=== PATIENT | female | born 1960 | race Caucasian/White ===

== ENCOUNTER → 2016-05-07 16:01 | Outpatient (CLI) | payer OTHER | END | disposition home or self-care (01) | LOC: D.MAMMO 15:15 | DX: Z12.31 Encounter for screening mammogram for malignant neoplasm of breast (principal) ==

== ENCOUNTER → 2016-08-20 07:57 | Outpatient (CLI) | payer MEDICAID | END | disposition home or self-care (01) | LOC: D.CN 05-29 08:00 | DX: M79.602 Pain in left arm (principal) ==

== ENCOUNTER 2016-09-18 22:58 | Observation (INO) | payer MEDICAID ==
[~2016-09-18] VITALS: Ht 154.9 cm; Wt 78.2 kg
--- NOTE | ~2016-09-18 | OP ---
PATIENT NAME: KATERIN BAKER MEDICAL RECORD: [id number] :56 LOCATION:D.M2 D.2137 ADMISSION DATE:09/19/16 SURGEON: CALLIE GOMEZ MD DATE OF OPERATION: 09/20/2016 PROCEDURES: 1. PTCA stent LAD. 2. Left heart catheterization. 3. Selective coronary angiography. 4. Left ventriculogram. INDICATION: Angina and coronary artery disease. PROCEDURE IN DETAIL: After informed consent was obtained and after detailed explanation of risks, benefits as well as alternative therapies, the patient elected to proceed with angiogram and angioplasty. The right radial area was prepped and draped in normal sterile fashion. The right radial artery was cannulated via modified Seldinger technique with placement of 6-Kinyarwanda sheath. All catheters exchanged through this sheath. FINDINGS: Left ventriculogram was performed in standard 30-degree FLOWERS view, reveals good cardiac wall motion throughout all segments. Overall ejection fraction 65%. SELECTIVE CORONARY ANGIOGRAPHY: 1. Left main showed no significant angiographic disease. 2. Left anterior descending has a 70%-80% stenosis proximally, otherwise only mild irregularities. 3. Left circumflex has moderate irregularities, but no flow-limiting stenosis. 4. Right coronary has moderate irregularities, but no flow-limiting stenosis. PTCA STENT OF THE LAD: The stent used is a 2.5 x 18 mm Integrity. Result was 0% residual stenosis. OVERALL IMPRESSION: Successful percutaneous transluminal coronary angioplasty stent of the left anterior descending going from 80% initial stenosis to 0% residual. TRANSINT:[id number] Voice Confirmation ID: [id number] DOCUMENT ID: [id number] CALLIE GOMEZ MD CC: [id number] DICTATION DATE: 09/20/16931 CEMENT CONTRACTOR: 09/20/16 1337 ADM IN [facility] [address] [place] [address]
--- NOTE | ~2016-09-18 | HEMODYNAMI ---
PATIENT:KATERIN BAKER MEDICAL RECORD: [id number] : 56 [facility] ADMISSION DATE: 09/19/16 Generatedon:09/20/20169:34 Patient name: KATERIN BAKER Patient #: [id number] SSN: D OB: 1960 Date of study: 09/20/2016 Page: Of Hemodynamic Procedure Report Patient Data Patient Demographics Procedure consent was obtained First Name: KATERIN Gender: Female Last Name: SAMUEL : 1960 [facility] Initial: J Age: 55 year(s) Patient #: [id number] Race: Additional ID: [id number] Contact details [address]: [address] [place] [address] [address]IVE State: [place] City: [place] Zip code: [address] Past Medical History Allergies Allergen Reaction Date Comments Reported Other allergy 09/20/2016 codeine, Pentazocine (talwin) Admission Admission Data Admission Date: 09/19/2016 Admission Time: 2:58 Room #: D.2137 Lab Results Lab Result Date: 09/20/2016 Lab Result Time: 0:00 Biochemistry Name Units Result Min Max BUN mg/dl 16 --(---*)-- 7 18 Creatinine mg/dl 1.1 --(--*-)-- 0.6 1.3 CBC Name Units Result Min Max Hemoglobin g/dl 12.1 *-(----)-- 13.5 17.5 Procedure Procedure Types Cath Procedure Diagnostic Procedure LHC LH w/Coronaries PCI Procedure Coronary Stent Initial Procedure Description Procedure Date Procedure Date: 09/20/2016 Procedure Start Time: 9:18 Procedure End Time: 9:33 Procedure Staff Name Function Damian Lorenzo MD Performing Physician Johana Gomez RT Scrub John Paul Verduzco RN Nurse Nasir Yanez RT Monitor Procedure Data Cath Procedure Fluoroscopy Diagnostic fluoroscopy Total fluoroscopy Time: 3.1 time: 3.1 min min Diagnostic fluoroscopy Total fluoroscopy dose: 429 dose: 429 mGy mGy Contrast Material Contrast Material Type Amount (ml) Isovue 300 66 Entry Location Entry Primary Successful Side Size Upsize Upsize Entry Closure Ramon ccessful Closure Location (Fr) 1 (Fr) 2 (Fr) Remarks Device Remarks Radial Right 6 Fr Mechanical artery Short Compression Estimated blood loss: 10 ml Diagnostic catheters Device Type Used For End Catheter Placement Diagnostic Terumo 5Fr Procedure [place] 110cm catheter Procedure Medications Medication Administration Route Dosage Oxygen NC 2 l/min Heparin Flush Bag added to field 2 bags (1000units/500ml NS) 0.9% NaCl I.V. 100 ml/hr Radial Cocktail added to field 1 syringe (Verapomil 2mg/Nitro 400mcg/Heparin 1500units) Plavix P.O. 75 mg Fentanyl I.V. 50 mcg Versed I.V. 1 mg Radial Cocktail I.A. 1 syringe (Verapomil 2mg/Nitro 400mcg/Heparin 1500units) Fentanyl I.V. 50 mcg Versed I.V. 1 mg Heparin Bolus I.V. 4000 units Hemodynamics Rest HGB: 12.1 (g/dl) Heart Rate: 64 (bpm) Pressure Samples Time Site Value (mmHg) Purpose Heart Use Rate(bpm) 9:21 LV 100/12,13 Snapshot 81 Snapshots Pre Cath Intra NCS Post Cath Vital Signs Time Heart Resp SPO2 NIBP (mmHg) Rhythm Pain Sedation Rate (ipm) (%) Status Level (bpm) 8:40:10 62 20 100 141/75(102) NSR 0 (11) 10(A) , No pain 8:45:09 67 20 100 149/66(101) NSR 0 (11) 10(A) , No pain 8:49:29 79 20 99 143/76(99) NSR 0 (11) 10(A) , No pain 8:53:45 74 23 95 137/75(100) NSR 0 (11) 10(A) , No pain 8:58:01 66 18 95 111/69(79) NSR 0 (11) 10(A) , No pain 9:02:11 67 20 94 120/64(78) NSR 0 (11) 10(A) , No pain 9:06:23 66 20 94 111/65(84) NSR 0 (11) 10(A) , No pain 9:10:31 70 17 93 110/66(83) NSR 0 (11) 10(A) , No pain 9:14:39 70 19 94 109/67(83) NSR 0 (11) 10(A) , No pain 9:18:47 73 20 94 114/66(86) NSR 0 (11) 9(A) , No pain 9:22:56 76 19 95 112/61(72) NSR 0 (11) 9(A) , No pain 9:27:08 74 20 92 103/58(71) NSR 0 (11) 9(A) , No pain 9:31:16 71 20 93 104/58(89) NSR 0 (11) 9(A) , No pain Medications Time Medication Route Dose Verified Delivered Reason Notes Effectiveness by by 8:48:02 Oxygen NC 2 l/min John Paul Coker Per physician Dax Verduzco RN RN 8:48:10 Heparin Flush added 2 bags John Paul Coker used for Bag to Dax Verduzco RN procedure (1000units/500ml field SAN NS) 8:48:19 0.9% NaCl I.V. 100 John Paul Malhotray Per physician ml/hr Dax Verduzco RN RN 8:48:28 Radial Cocktail added 1 John Paul Coker used for (Verapomil to syringe Dax Verduzco RN procedure 2mg/Nitro RN 400mcg/Heparin 1500units) 8:52:03 Plavix P.O. 75 mg John Paul John Paul for Dax Verduzco RN antiplatelet RN therapy 9:14:08 Fentanyl I.V. 50 mcg John Paul John Paul for sedation Dax Verduzco RN RN 9:14:14 Versed I.V. 1 mg John Paul John Paul for sedation Dax Verduzco RN RN 9:20:15 Radial Cocktail I.A. 1 John Paul Garciarey for (Verapomil syringe Dax Lorenzo MD vasodilation 2mg/Nitro RN 400mcg/Heparin 1500units) 9:20:22 Fentanyl I.V. 50 mcg John Paul John Paul for sedation Dax Verduzco RN RN 9:20:28 Versed I.V. 1 mg John Paul John Paul for sedation Dax Verduzco RN RN 9:26:08 Heparin Bolus I.V. 4000 John Paul Coker for units Dax Verduzco RN anticoagulation automotive engineer Log Time Note 8:07:23 Informed consent obtained and on chart 8:07:27 Diagnostic Cath Status : Elective 8:08:16 Damian Lorenzo MD sent for patient. Start room use. 8:08:33 Time tracking: Regular hours 8:08:39 Plan of Care:Hemodynamics will remain stable., Cardiac rhythm will remain stable., Comfort level will be maintained., Respiratory function will remain adequate., Patient/ family verbilizes understanding of procedure., Procedure tolerated without complication., Recovers from procedure without complications.. 8:15:38 Lab Result : BUN 16 mg/dl 8:15:38 Lab Result : Creatinine 1.1 mg/dl 8:15:38 Lab Result : Hemoglobin 12.1 g/dl 8:38:55 Patient received from Med II to CCL 2 Alert and oriented. Tansferred to table in Supine position. 8:38:57 Warm blankets applied, and cong hugger turned on for patient comfort. 8:38:58 Correct patient and procedure confirmed by team. 8:39:00 ECG and BP/O2 sat monitors applied to patient. 8:39:03 Vital chart was started 8:39:07 Baseline sample Acquired. 8:39:18 Rhythm: sinus rhythm 8:39:19 Full Disclosure recording started 8:40:17 H&P Date Dictated: 09/19/2016 Within 30 days and on chart., H&P Addendum completed by physician on day of procedure. (MUST COMPLETE FOR ALL OUTPATIENTS). 8:40:26 Pre-procedure instructions explained to patient. 8:40:36 Family in waiting room. 8:40:38 Patient NPO since Midnight. 8:41:19 Patient allergic to Other allergycodeine, Pentazocine (talwin) 8:41:22 Is the patient allergic to Iodine/contrast media? No. 8:41:41 Is patient on blood thinner?Yes 8:41:45 ACC The patient was administered the following blood thiners within the last 24 hours: ACCPlavix 8:42:01 Patient diabetic? No. 8:42:07 Snore? Yes 8:42:09 Sleep apnea? No 8:42:17 Dentures? Yes tight 8:42:33 IV patent on arrival in left forearm with 0.9% NaCl at KVO. 8:42:41 Lab results completed and on chart. 8:42:46 Right Radial & Right Groin area was prepped with chlora-prep and draped in sterile fashion 8:42:51 Alarms reviewed by R. N. 8:42:52 Sharps counted by scrub and verified by R.N. 8:42:53 Physician paged 8:48:02 Oxygen 2 l/min NC was administered by John Paul Verduzco RN; Per physician; 8:48:10 Heparin Flush Bag (1000units/500ml NS) 2 bags added to field was administered by John Paul Verduzco RN; used for procedure; 8:48:19 0.9% NaCl 100 ml/hr I.V. was administered by John Paul Verduzco RN; Per physician; 8:48:28 Radial Cocktail (Verapomil 2mg/Nitro 400mcg/Heparin 1500units) 1 syringe added to field was administered by John Paul Verduzco RN; used for procedure; 8:51:07 Baseline sample Acquired. 8:51:39 Use device set Radial Dx 8:51:40 Acist Syringe opened to sterile field. 8:51:41 Medline Cath Pack opened to sterile field. 8:51:41 Bag Decanter opened to sterile field. 8:51:42 Terumo 6Fr Slender Glidesheath opened to sterile field. 8:51:42 St Kareem 260cm J .035 wire opened to sterile field. 8:51:43 Acist Hand Control opened to sterile field. 8:51:44 Acist Manifold opened to sterile field. 8:51:44 Tegaderm 4 x 4 opened to sterile field. 8:51:45 MBrace Wrist Support opened to sterile field. 8:52:03 Plavix 75 mg P.O. was administered by John Paul Verduzco RN; for antiplatelet therapy; 9:02:22 Zero performed for pressure channel P1 9:05:21 DR. LORENZO IN ROOM 1 9:09:27 PATIENTS ID BAND AND ALLERGY BAND REMOVED FROM RIGHT WRIST AND TAPED TO CHART 9:09:54 PATIENT HAD FOUR RINGS REMOVED FROM RIGHT HAND AND TAPED TO CHART 9:13:42 Physician arrived 9:13:42 --------ALL STOP TIME OUT------ 9:13:43 Final Timeout: patient, procedure, and site verified with staff and physician. All members of the team are in agreement. 9:13:45 Right Radial & Right Groin site verified by team. 9:13:48 Physical assessment completed. ASA score P 2 - A patient with mild systemic disease as per Damian Lorenzo MD. 9:13:52 Sedation plan: IV Moderate Sedation Versed, Fentanyl 9:14:08 Fentanyl 50 mcg I.V. was administered by John Paul Verduzco RN; for sedation; 9:14:14 Versed 1 mg I.V. was administered by John Paul Verduzco RN; for sedation; 9:18:32 Procedure started. 9:18:37 Local anesthetic to right radial artery with Lidocaine 2% by Damian Lorenzo MD.INITIAL ACCESS ONLY 9:19:56 A 6 Fr Short sheath was inserted into the Right Radial artery 9:20:15 Radial Cocktail (Verapomil 2mg/Nitro 400mcg/Heparin 1500units) 1 syringe I.A. was administered by Damian Lorenzo MD; for vasodilation; 9:20:16 A Diagnostic Sittercityo 5Fr [place] 110cm catheter was advanced over the wire and used for Procedure. 9:20:22 Fentanyl 50 mcg I.V. was administered by John Paul Verduzco RN; for sedation; 9:20:28 Versed 1 mg I.V. was administered by John Paul Verduzco RN; for sedation; 9:21:18 LV hemodynamics recorded. 9:21:20 LV gram done using FLOWERS 9:21:26 EF : 60 % 9:22:17 RCA angiography performed. 9:22:32 Catheter removed. unable to cannulate vessel. 9:22:53 Cordis 6FR XBLAD 3.5 guide catheter opened to sterile field. 9:23:05 6 Fr XB LAD 3.5 guide catheter was inserted over the wire 9:23:53 LCA angiography performed. 9:24:32 Proceeding to intervention. 9:24:39 PCI Cath status Elective 9:24:46 Procedure type changed to Cath procedure, Diagnostic procedure, LHC, LHC w/Coronaries, PCI procedure, Coronary Stent Initial 9:25:12 Merit BasixCompak Inflation Kit opened to sterile field. 9:26:08 Heparin Bolus 4000 units I.V. was administered by John Paul Verduzco RN; for anticoagulation; 9:27:12 [place] [employer] PT Graphix J 300cm 0.014 guide wire opened to sterile field. 9:27:27 PT GRAPHIX wire advanced. 9::56 Inflation Number: 1 A Medtronic Integrity 2.5 X 18 stent was prepped and advanced across the Prox LAD. The stent was deployed at 15 JOSE J for 0:10 (min:sec). 9::33 Stent catheter was removed intact over wire. 9::34 Wire removed. 9:28:35 Guide catheter removed. 9:28:44 Terumo TR Band Standard opened to sterile field. 9:29:10 Sheath removed intact; hemostasis achieved with Mechanical Compression to the Right Radial artery. 9:29:14 Procedure ended.(Physican Out) 9::27 Fluoroscopy time 03.10 minutes. 9::33 Fluoroscopy dose: 429 mGy 9::33 Flurop Dose total: 429 9::47 Contrast amount:Isovue 300 66ml. 9:29:48 Sharps counted by scrub and verified by R.N. 9:32:22 TR band inflated with 10cc of air. 9:32:24 Insertion/operative site no bleeding no hematoma. 9:32:30 Post right radial artery:stable 9:32:37 Post-procedure physical assessment completed. ASA score P 2 - A patient with mild systemic disease as per Damian Lorenzo MD. 9:32:41 Post procedure rhythm: sinus rhythm 9:32:44 Estimated blood loss: 10 ml 9:32:45 Post procedure instruction explained to patient.Patient verbalizes understanding. 9:32:46 Patient needs reinforcement of post procedure teaching. 9:33:01 Procedure and supply charges have been captured, reviewed, submitted and are correct. 9:33:03 Vital chart was stopped 9:33:04 See physician's report for complete and final results. 9:33:08 Report given to [facility]. 9:33:13 Patient transfered to [facility] with Bed. 9:33:16 Procedure ended. 9:33:16 Full Disclosure recording stopped 9:33:28 End room use (Document Last) Intervention Summary Intervention Notes Time ActionType Lesion and Equipment Action# Pressure Duration Attributes Used 9::56 Place stent Prox LAD Medtronic 1 15 00:10 Integrity 2.5 X 18 stent Device Usage Item Name Manufacture Quantity Catalog Number Hospital Part Current Minim al Lot# / Charge Number Stock Stock Serial# Code Acist Aclos [facility] 1 94010 676774 220169 045149 20 Syringe Medical Systems Inc Medline Cardinal 1 [id number] 795613 62671 346373 5 Cath Pack Health Bag Microtek 1 2002S 797433 81524 185733 5 Decanter Medical Inc. Terumo 6Fr Terumo 1 [id number] 023191 052109 306472 [address] St Kareem 1 124851 748896 658962 130738 30 260cm J .035 wire Acist Hand Acist 1 96848 664105 354372 939680 5 Control Medical Systems Inc Acist Acist 1 49157 510150 512639 911849 5 Manifold Medical Systems Inc Tegaderm 4 3M 1 1626W 287211 786107 523603 5 x 4 MBrace Advanced 1 140-0250-00 352437 52042 661514 5 Wrist Vascular Support Dynamics Diagnostic Terumo 1 15-7116 348402 849027 791902 5 Terumo 5Fr [place] 110cm catheter Cordis 6FR Cardinal 1 [id number] 561190 907479 205152 10 XBLAD 3.5 Health guide catheter Merit Merit 1 [id number] 331480 883986 141270 15 BasixCompak Medical Inflation Kit [place] Sci [place] 1 [id number] 489790 202904 315913 5 [id number] PT Checkpoint Surgical Scientific J 300cm 0.014 guide wire Medtronic Medtronic 1 [id number] 361322 710757 5 [id number] Integrity 2.5 X 18 stent Terumo TR Terumo 1 [id number] 529267 331496 593492 40 Band Standard Signature Audit Constantia Stage Time Signature Unsigned Intra-Procedure 09/20/2016 Nasir Yanez 9:33:57 AM RT(R) (CV) Signatures Monitor : Nasir Yanez RT Signature : Date : Time : [facility] [address] [place] [address]
--- NOTE | ~2016-09-18 | CN ---
PATIENT NAME:KATERIN BAKER MEDICAL RECORD: [id number] : 56 LOCATION:D. D.2137 ADMIT DATE: 09/19/16 ACCOUNT: [id number] CONSULTING PHYSICIAN: CALLIE GOMEZ MD REFERRING PHYSICIAN: CHARLEY SORTO MD DATE OF CONSULTATION: 09/19/2016 ADMITTING DIAGNOSES: 1. Chest pain compatible with angina. 2. Family history of coronary artery disease. 3. Smoking history. 4. Hyperlipidemia. HISTORY OF PRESENT ILLNESS: Mrs. Baker presents with chest pain started yesterday a very typical anginal pain a tight squeezing sensation across the anterior chest with radiation to her back. She had multiple episodes of it, she continues to have multiple episodes today. Her EKG is with no acute changes. Her troponin is normal. PHYSICAL EXAMINATION: GENERAL APPEARANCE: Well-nourished, well-developed, appears stated age. Level of distress, comfortable. PSYCHIATRIC: Mental status, alert, normal affect. Orientation, oriented to time, place and person. EYES: Lids and conjunctiva, noninjected. No discharge, no pallor. ENT: Lips, teeth, gums, normal dentition. Oropharynx, no cyanosis, no pallor. NECK: Carotid arteries, bilateral normal upstroke, no bruits, no thrills. JUGULAR VEINS: No jugular venous pressure or distention. CERVICAL LYMPH NODES: Nontender, nonenlarged. THYROID: Not enlarged. Nontender. No nodules. LUNGS: Respiratory effort, unlabored. CHEST: Normal curvature. No thoracic deformity. No chest wall tenderness. Percussion, resonant. Auscultation, clear. No wheezes, no rales, no rhonchi. CARDIOVASCULAR: Precordial exam, nondisplaced. No heaves or pericardial thrills. Rate and rhythm, regular. Heart sounds, normal S1, normal S2. No S3, no gallop, no rub. Systolic murmur, not heard. Diastolic murmur, not heard. EXTREMITIES: No cyanosis, no edema. Peripheral pulses, full and equal in all extremities, except as noted. No bruits appreciated. ABDOMEN: Soft, nondistended. Normal aorta. No bruit. Nontender. No masses. Liver, nontender, no hepatomegaly. Spleen, nontender, no splenomegaly. MUSCULOSKELETAL: No joint tenderness. No joint swelling. No erythema. NEUROLOGICAL: Normal gait, normal strength, normal tone. SKIN: Warm and dry. OVERALL IMPRESSION: Unstable angina, escalating fashion with multiple risk factors not having heart attacks, but surely is suggesting angina. We will proceed with coronary angiography. Further care depends upon findings of the angiography. TRANSINT:[id number] Voice Confirmation ID: [id number] DOCUMENT ID: [id number] CONSULT REPORT [id number] KATERIN BAKER JEFFREY MD CC: [id number] DICTATION DATE: 09/19/16 1523 CAREER SERVICES REPRESENTATIVE: 09/19/162010 ADM IN [facility] [address] [place] [id number]
[2016-09-18 23:27] LABS: BASOPHILS 0.7 % (0-2); EOSINOPHILS 2.5 % (0-7); HEMATOCRIT 39.5 % (36.0-48.0); IMMATURE GRANULOCYTES 0.3 % (0-5); LYMPHOCYTES 27.3 % (15-50); MCH 29.3 pg (26.0-34.0); MCHC 32.9 g/dL (31.0-37.0); MEAN PLATELET VOLUME 9.7 fL (7.4-10.4); MONOCYTES 6.6 % (2-11); NEUTROPHILS 62.6 % (40-80); PLATELET COUNT 283 10x3/uL (130-400); RBC 4.44 10x6/uL (4.00-5.40); RDW 13.7 % (11.5-14.5); WBC 8.6 10x3/uL (4.8-10.8)
[2016-09-18 23:36] LABS: ALBUMIN 3.4 g/dL (3.4-5.0); ALKALINE PHOSPHATASE 89 U/L (46-116); ALT (SGPT) 20 U/L (10-68); CALC OSMOLALITY 281 mosm/kg (275-300); CALCIUM 8.8 mg/dL (8.5-10.1); CARBON DIOXIDE 32.6 mmol/L (21.0-32.0); CHLORIDE - SERUM 102 mmol/L (98-107); CREATININE - SERUM 1.2 mg/dL (0.6-1.3); GLUCOSE 113 mg/dL (74-106); POTASSIUM - SERUM 4.2 mmol/L (3.5-5.1); PROTEIN - SERUM 7.9 g/dL (6.4-8.2); SODIUM 141 mmol/L (136-145); UREA NITROGEN 12 mg/dL (7-18); eGFR NON AFRICAN AMERICAN 49 mL/min (90-120)
[2016-09-18 23:48] LABS: CHOL - HDL RATIO 2.6 ratio (2.3-4.1); CHOLESTEROL, TOTAL 152 mg/dL (0-200); CREATINE KINASE 37 UL (21-215); HDL CHOLESTEROL 58 mg/dL (32-96); LDL CHOLESTEROL 72 mg/dL (0-100); LDL-HDL RATIO 1.2 ratio (1.5-3.5); TRIGLYCERIDE 112 mg/dL (30-200); TROPONIN-I < 0.017 ng/mL (0.000-0.060)
[2016-09-19] MEDS ORDERED: OXYBUTYNIN CHLOR5 MG PO (03:30)
[2016-09-19] MEDS ORDERED: PROTONIX20 MG PO (03:30)
--- NOTE | 2016-09-19 03:30 | NUR ---
REC FROM ER VIA WC. AMBULATED TO BED WITH STEADY GAIT. ALERT/ORIENTED X 4. DENIES CHEST PAIN. IV IN L FA INTACT SL. ATTACHED TELEMETRY PER ORDER. SHOWS 64 SR ON MONITOR. STATED SHE IS INCONTINENT/DIAPER. ORIENTED TO ROOM AND CALL LIGHT. HER IS PRESENT IN ROOM.
[2016-09-19] MEDS ORDERED: ZOCOR20 MG PO (03:31)
[2016-09-19 05:11] VITALS: BP 97/47; Ht 154.9 cm; Wt 78.2 kg
[2016-09-19 05:32] VITALS: BP 97/47
--- NOTE | 2016-09-19 06:30 | NUR ---
ADMIN NITRO-BID PER ORDER. DENIES PAIN OR ANY NEEDS.
[2016-09-19 06:40] LABS: CREATINE KINASE 41 UL (21-215)
[2016-09-19 06:43] LABS: TROPONIN-I < 0.017 ng/mL (0.000-0.060)
--- NOTE | 2016-09-19 07:35 | NUR ---
REPORT RECIEVED, PT RESTING QUIETLY, DENIES NEEDS AT THIS TIME. RR EVEN AND UNLABORED. INTRODUCED SELF AND PLACED NAME ON WHITE BOARD. WILL CTM.
[2016-09-19 10:19] VITALS: BP 98/49
[2016-09-19 11:34] LABS: CREATINE KINASE 38 UL (21-215)
[2016-09-19 11:35] LABS: TROPONIN-I < 0.017 ng/mL (0.000-0.060)
[2016-09-19 12:17] VITALS: BP 101/57
[2016-09-19 16:00] VITALS: BP 118/61
[2016-09-19 18:20] LABS: CREATINE KINASE 32 UL (21-215)
[2016-09-19 18:23] LABS: TROPONIN-I < 0.017 ng/mL (0.000-0.060)
--- NOTE | 2016-09-19 18:30 | NUR ---
PT RESTING QUIETLY, FAMILY AT BESIDE. RR EVEN AND UNALBORED, WILL GIVE REPORT ON PT CONDITION FOR THE DAY.
[2016-09-19 20:00] VITALS: BP 108/61
--- NOTE | 2016-09-19 21:20 | NUR ---
ADMIN SCHED MEDS. REQUESTED A SODA AND ICE CREAM. DENIES PAIN OR ANY DISCOMFORT.
[2016-09-20] VITALS: BP 115/67
--- NOTE | 2016-09-20 00:15 | NUR ---
INFORMED PATIENT SHE IS NOW NPO. STATED SHE UNDERSTANDS. REMOVED ALL FLUIDS FROM BEDSIDE TABLE. NO NEEDS OR DISCOMFORTS VOICED.
--- NOTE | 2016-09-20 03:45 | NUR ---
RETURNING TO BED FROM BATHROOM. ZONING ADMINISTRATOR IN ROOM TO TAKE VS. DENIES ANY NEEDS.
[2016-09-20 05:24] VITALS: BP 114/73
[2016-09-20 06:21] LABS: BASOPHILS 0.9 % (0-2); EOSINOPHILS 2.9 % (0-7); HEMATOCRIT 36.2 % (36.0-48.0); HEMOGLOBIN 12.1 g/dL (12-16); IMMATURE GRANULOCYTES 0.1 % (0-5); LYMPHOCYTES 22.7 % (15-50); MCH 29.4 pg (26.0-34.0); MCHC 33.4 g/dL (31.0-37.0); MCV 88.1 fL (80.0-100.0); MEAN PLATELET VOLUME 9.9 fL (7.4-10.4); MONOCYTES 7.2 % (2-11); NEUTROPHILS 66.2 % (40-80); PLATELET COUNT 244 10x3/uL (130-400); RBC 4.11 10x6/uL (4.00-5.40); RDW 13.6 % (11.5-14.5); WBC 7.6 10x3/uL (4.8-10.8)
--- NOTE | 2016-09-20 06:30 | NUR ---
HAD A SHOWER WITH HIBICLENS. APPLIED NITRO-BID PATCH ON CHEST WALL. REPLACED TELEMETRY LEADS. FLUSHED IV. MEDICAL PLANNER CHANGED BEDDING.
[2016-09-20 06:39] LABS: ANION GAP 11.6 mmol/L (8-16); CALCIUM 8.3 mg/dL (8.5-10.1); CARBON DIOXIDE 27.6 mmol/L (21.0-32.0); CREATININE - SERUM 1.1 mg/dL (0.6-1.3); POTASSIUM - SERUM 4.2 mmol/L (3.5-5.1)
[2016-09-20 07:43] VITALS: BP 134/78; BP 139/69
--- NOTE | 2016-09-20 08:00 | NUR ---
AM ROUNDS COMPLETED. SHIFT ASSESSMENT DONE. PT IS ALERT AND ORIENTED SITTING UP IN BED RESTING QUIETLY. PT C/O L.FA PIV HURTING UPON FLUSHING IT, IT TURNED HARD AND RED. D/C WITH CATH TIP FULLY INTACT. NEW [address] TO L.WRIST X1 ATTEMPT. PT AWAITING DENTURE TECHNICIAN AND DENIES ANY CURRENT PAIN OR NEEDS. CL IN REACH, WILL CTM.
--- NOTE | 2016-09-20 10:14 | NUR ---
PT BACK FROM FILLETER. TR BAND TO R.WRIST IN PLACE. NO S/S OF BLEEDING OR HEMATOMA NOTED. PERIPHERAL PULSES INTACT. VSS AND BEING MONITERED Q15MIN PER PROTOCOL. PT AWAKE BUT DROWSY AND WOULD LIKE TO CONTINUE RESTING. FAMILY AT BEDSIDE AND SPOKE WITH AND VERBALIZED UNDERSTANDING OF ONE STENT PLACED. PT SHOULD BE ABLE TO BE DISCHARGED LATER TODAY. CL IN REACH, BED IN LOWEST, SIDE RAILS X2 AND BUILT IN BED ALARM ON. WILL CPOC.
[2016-09-20] MEDS ORDERED: ASPIRIN81 MG PO (13:17)
[2016-09-20] MEDS ORDERED: NICODERM C1 PATCH .1 TRANSDERM (13:18)
[2016-09-20] MEDS ORDERED: PLAVIX75 MG PO (13:19)
--- NOTE | 2016-09-20 13:58 | NUR ---
REMOVED HALF OF AIR FROM TR BAND TO R.WRIST NO BLEEDING NOTED. WILL CONTINUE TO REMOVE AIR PER PROTOCOL. DISCHARGE PAPERS BEING WORKED ON PT EXCITED TO GO HOME. PERIPHERAL PULSES STILL INTACT AND VSS THROUGHOUT MONITERING. PT DENIES ANY CURRENT PAIN OR NEEDS AT THIS TIME. CL IN REACH, BED IN LOWEST, SIDE RAILS X2. WILL CPOC.
--- NOTE | 2016-09-20 14:30 | NUR ---
REMOVED ANOTHER HALF OF PTS AIR FROM TR BAND TO R.WRIST. STILL NO BLEED NOTED. WILL CTM.
--- NOTE | 2016-09-20 14:54 | NUR ---
PTS TR BAND TIME COMPLETED AND ALL AIR REMOVED. NO BLEEDING OR HEMATOMA NOTED. VSS, PERIPHERAL PULSES INTACT. PT READY TO BE DISCHARGED. D/C L.WRIST PIV WITH CATHETER TIP FULLY INTACT. DISCHARGE TEACHING PROVIDED AND PT VERABLIZED UNDERSTANDING AND DENIES ANY QUESTIONS OR CONCERNS. TELEMETRY RETURNED TO [employer]. PT COLLECTING BELONGINGS AND AWAITING HER TRANSPORTATION. WILL CTM.
== END 2016-09-20 15:49 | disposition home or self-care (01) ==
LOC: D.ER 22:58 → OBSVTIME 09-19 02:58 → D.M2 09-19 02:58
PROVIDERS: Family Medicine; ADMIT Family Medicine
DX: I25.119 Atherosclerotic heart disease of native coronary artery with unspecified angina pectoris (principal); F17.203 Nicotine dependence unspecified, with withdrawal; K21.9 Gastro-esophageal reflux disease without esophagitis; E78.5 Hyperlipidemia, unspecified

== ENCOUNTER 2017-11-07 09:21 | Outpatient (CLI) | payer MEDICAID ==
[~2017-11-07] VITALS: Ht 154.9 cm; Wt 84.5 kg
--- NOTE | ~2017-11-07 | HEMODYNAMI ---
PATIENT:KATERIN BAKER MEDICAL RECORD: [id number] : 56 LOCATION:DChrisCAT ADMISSION DATE: 11/07/17 Generatedon:11/07/201712:15 Patient name: KATERIN BAKER Patient #: [id number] SSN: D OB: 1960 Date of study: 11/07/2017 Page: Of Hemodynamic Procedure Report Patient Data Patient Demographics Procedure consent was obtained First Name: KATERIN Gender: Female Last Name: SAMUEL : 1960 [facility] Initial: J Age: 56 year(s) Patient #: [id number] Race: Additional ID: [id number] Contact details [address]: [address] [place] [address] [address]IVE State: [place] City: [place] Zip code: [address] Past Medical History Allergies Allergen Reaction Date Comments Reported Other allergy 09/20/2016 codeine, Pentazocine (talwin) Other allergy 11/07/2017 Codeine, Talwin Admission Admission Data Admission Date: 11/07/2017 Admission Time: 9:21 Procedure Procedure Types Cath Procedure Diagnostic Procedure [facility] w/Coronaries PCI Procedure Coronary Stent Coronary Stent Initial Procedure Description Procedure Date Procedure Date: 11/07/2017 Procedure Start Time: 12:00 Procedure End Time: 12:10 Procedure Staff Name Function Leeanne Diaz RT Monitor Deni Alberto RN Nurse Damian Lorenzo MD Performing Physician Johana Gomez RT Nailhead Operator Masha Mabry RT Scrub Bernadine Cerna RN Nurse Procedure Data Cath Procedure Fluoroscopy Diagnostic fluoroscopy Total fluoroscopy Time: 2.2 time: 2.2 min min Diagnostic fluoroscopy Total fluoroscopy dose: 332 dose: 332 mGy mGy Contrast Material Contrast Material Type Amount (ml) Isovue 300 47 Entry Location Entry Primary Successful Side Size Upsize Upsize Entry Closure Ramon ccessful Closure Location (Fr) 1 (Fr) 2 (Fr) Remarks Device Remarks Radial Right 6 Fr Mechanical artery Short Compression Estimated blood loss: 10 ml Diagnostic catheters Device Type Used For End Catheter Placement DIAGNOSTIC [facility] 110cm 5 LV Angiography Fr catheter ([id number]) DIAGNOSTIC [facility] 110cm 5 Left Coronary Fr catheter ([id number]) Angiography DIAGNOSTIC [facility] 110cm 5 Right Coronary Fr catheter ([id number]) Angiography Procedure Complications No complications Procedure Medications Medication Administration Route Dosage Oxygen etCO2 Nasal cannula 2 l/min Lidocaine 2% added to field 20 Heparin Flush Bag added to field 2 bags (1000units/500ml NS) 0.9% NaCl I.V. 100 ml/hr Radial Cocktail I.A. 1 syringe (Verapomil 2mg/Nitro 400mcg/Heparin 1500units) Versed I.V. 1 mg Fentanyl I.V. 50 mcg Versed I.V. 1 mg Fentanyl I.V. 50 mcg Heparin Bolus I.V. 4000 units Integrilin (Bolus I.V. 7.9 ml 2mg/ml) Plavix P.O. 600 mg Hemodynamics Rest Heart Rate: 71 (bpm) Snapshots Pre Cath Intra NCS Post Cath Vital Signs Time Heart Resp SPO2 etCO2 NIBP (mmHg) Rhythm Pain Sedation Rate (ipm) (%) (mmHg) Status Level (bpm) 11:51:30 65 18 99 34.7 145/83(120) NSR 0 (11) 10(A) , No pain 11:56:17 67 12 97 36.9 123/63(107) NSR 0 (11) 10(A) , No pain 12:00:56 72 13 96 24.1 112/72(93) NSR 0 (11) 10(A) , No pain 12:05:36 78 10 96 32.4 122/62(89) NSR 0 (11) 9(A) , No pain 12:10:15 80 10 97 24.1 115/68(92) NSR 0 (11) 10(A) , No pain Medications Time Medication Route Dose Verified Delivered Reason Not es Effectiveness by by 11:50:10 Oxygen etCO2 2 l/min Damian Cheema used for Nasal Bj Alberto RN procedure cannula 11:50:18 Lidocaine 2% added 20ml Damian Salgado for local to vial Bj Lorenzo MD anesthetic field 11:50:25 Heparin Flush added 2 bags Damian Salgado used for Bag to Bj Lorenzo MD procedure (1000units/500ml field NS) 11:51:01 0.9% NaCl I.V. 100 Damian Cheema Per physician ml/hr Bj Alberto RN 11:51:11 Radial Cocktail I.A. 1 Damian Salgado for (Verapomil syringe Bj Lorenzo MD vasodilation 2mg/Nitro 400mcg/Hepari 11:59:26 Versed I.V. 1 mg Damian Salgado for sedation Bj Lorenzo MD 11:59:38 Fentanyl I.V. 50 mcg Damian Salgado for sedation Bj Lorenzo MD 12:03:04 Versed I.V. 1 mg Damian Salgado for sedation Bj Lorenzo MD 12:03:10 Fentanyl I.V. 50 mcg Damian Salgado for sedation Bj Lorenzo MD 12:05:16 Heparin Bolus I.V. 4000 Damian Cheema for domitila fied units Bj Alberto RN anticoagulation w/ Dr. Lorenzo 12:05:59 Integrilin I.V. 7.9 ml Damian Cheema for was jabier (Bolus 2mg/ml) Bj Alberto RN anticoagulation 2.1ml 12:15:03 Plavix P.O. 600 mg Damian Bernadine for Bj Cerna anticoagulation sr. manager corporate communications Log Time Note 11:40:53 Time tracking: Regular hours (M-F 7:00 - 5:00) 11:40:56 Plan of Care:Hemodynamics will remain stable., Cardiac rhythm will remain stable., Comfort level will be maintained., Respiratory function will remain adequate., Patient/ family verbilizes understanding of procedure., Procedure tolerated without complication., Recovers from procedure without complications.. 11:41:00 Johana FRAZIER(R) sent for patient. Start room use. 11:44:13 Patient received from Pre/Post Procedure Room to CCL 1 Alert and oriented. Tansferred to table in Supine position. 11:44:15 Correct patient and procedure confirmed by team. 11:44:15 Warm blankets applied, and cong hugger turned on for patient comfort. 11:44:16 Signed procedure consent form obtained from patient. 11:44:17 ECG and BP/O2 sat monitors applied to patient. 11:44:18 Full Disclosure recording started 11:47:59 Vital chart was started 11:49:35 Baseline sample Acquired. 11:49:48 H&P Date Dictated: 11/05/2017 Within 30 days and on chart., H&P Addendum completed by physician on day of procedure. (MUST COMPLETE FOR ALL OUTPATIENTS). 11:49:50 Pre-procedure instructions explained to patient. 11:49:55 Family in patients room. 11:50:05 Patient NPO since Midnight. 11:50:10 Oxygen 2 l/min etCO2 Nasal cannula was administered by Deni Alberto RN; used for procedure; 11:50:18 Lidocaine 2% 20ml vial added to field was administered by Damian Lorenzo MD; for local anesthetic; 11:50:25 Heparin Flush Bag (1000units/500ml NS) 2 bags added to field was administered by Damian Lorenzo MD; used for procedure; 11:50:27 Patient allergic to Other allergyCodeineMaddy 11:50:30 Vital chart was stopped 11:50:30 Is the patient allergic to Iodine/contrast media? No. 11:50:32 Vital chart was started 11:50:33 Is patient on blood thinner?No 11:50:35 Patient diabetic? No. 11:50:43 Snore? Yes 11:50:44 Sleep apnea? No 11:51:01 Patient pain scale 0/10 ?. 11:51:01 0.9% NaCl 100 ml/hr I.V. was administered by Deni Alberto RN; Per physician; 11:51:09 IV patent on arrival in left forearm with 0.9% NaCl at [facility]. 11:51:11 Radial Cocktail (Verapomil 2mg/Nitro 400mcg/Heparin 1500units) 1 syringe I.A. was administered by Damian Lorenzo MD; for vasodilation; 11:51:15 Lab results completed and on chart. 11:51:19 Right Radial & Right Groin area was prepped with chlora-prep and draped in sterile fashion 11:51:20 Alarms reviewed by R. N. 11:51:21 Sharps counted by scrub and verified by R.N. 11:51:22 Physician paged 11:53:01 Previous problem with sedation/anesthesia? No ? 11:53:03 Deviated septum? No 11:53:04 Opens mouth fully? Yes 11:53:05 Sticks out tongue? Yes 11:53:06 Airway obstruction? No ? 11:53:14 Dentures? No ? 11:53:22 Pre procedure: right dorsailis pedis pulse 2+ Normal; easily identifiable; not easily obliterated 11:53:27 Baseline sample Acquired. 11:53:30 Rhythm: sinus rhythm 11:53:38 Pre-op teaching completed and patient verbalized understanding. 11:53:50 Use device set Radial Dx or PCI 11:53:51 Medline Cath Pack ([id number]) opened to sterile field. 11:53:51 ACIST Syringe (93228) opened to sterile field. 11:53:52 DIAGNOSTIC WIRE .035 260cm J wire (289603) opened to sterile field. 11:53:52 Bag Decanter (2002S) opened to sterile field. 11:53:53 ACIST Manifold (77507) opened to sterile field. 11:53:53 ACIST Hand Control (37600) opened to sterile field. 11:53:54 Tegaderm 4 x 4 (1626W) opened to sterile field. 11:53:55 MBrace Wrist Support ([id number]) opened to sterile field. 11:53:56 SHEATH 6Fr Prelude Radial ([id number]) opened to sterile field. 11:57:15 Zero performed for pressure channel P1 11:57:19 Zero performed for pressure channel P1 11:58:28 Final Timeout: patient, procedure, and site verified with staff and physician. All members of the team are in agreement. 11:58:31 Right Radial site verified by team. 11:58:54 Physical assessment completed. ASA score P 2 - A patient with mild systemic disease as per Damian Lorenzo MD. 11:58:57 Sedation plan: IV Moderate Sedation Medication:Versed, Fentanyl 11:59:26 Versed 1 mg I.V. was administered by Damian Lorenzo MD; for sedation; 11:59:38 Fentanyl 50 mcg I.V. was administered by Damian Lorenzo MD; for sedation; 12:00:39 Procedure started. 12:00:43 Local anesthetic to right radial artery with Lidocaine 2% by Damian Lorenzo MD.INITIAL ACCESS ONLY 12:00:52 A 6 Fr Short sheath was inserted into the Right Radial artery 12:01:44 A DIAGNOSTIC [facility] 110cm 5 Fr catheter ([id number]) was advanced over the wire and used for LV Angiography. 12:02:36 LV gram done using FLOWERS 12:02:39 Injector settings: Ml/sec: 5, Volume: 15, 12:02:48 EF : 60 % 12:03:04 Versed 1 mg I.V. was administered by Damian Lorenzo MD; for sedation; 12:03:10 Fentanyl 50 mcg I.V. was administered by Damian Lorenzo MD; for sedation; 12:03:19 A DIAGNOSTIC [facility] 110cm 5 Fr catheter ([id number]) was advanced over the wire and used for Left Coronary Angiography. 12:03:45 A DIAGNOSTIC [facility] 110cm 5 Fr catheter (274941) was advanced over the wire and used for Right Coronary Angiography. 12:03:49 Catheter removed. 12:03:54 Use device set [facility] PCI 12:03:59 INFLATOR Merit BasixCompak (ML5189) opened to sterile field. 12:04:06 CHOICE PT Extra Support 182cm wire ([id number]) opened to sterile field. 12:04:16 GUIDE 6FR XBLAD 3.5 catheter ([id number]) opened to sterile field. 12:05:02 6 Fr XBLAD 3.5 guide catheter was inserted over the wire 12:05:16 Heparin Bolus 4000 units I.V. was administered by Deni Alberto RN; for anticoagulation; verfied w/ Dr. Lorenzo 12:05:59 Integrilin (Bolus 2mg/ml) 7.9 ml I.V. was administered by Deni Alberto RN; for anticoagulation; wasted 2.1ml 12:06:03 CHOICE PT ES wire advanced. 12:06:58 Place stent Inflation Number: 1 A NAOMI RX 3.0 x 18 stent ([id number]) was prepped and advanced across the Prox LAD. The stent was deployed at 17 JOSE J for 0:07 (min:sec). 12:07:18 Stent catheter was removed intact over wire. 12::19 Guide catheter removed. 12::19 Wire removed. 12:07:29 Sheath removed intact; hemostasis achieved with Mechanical Compression to the Right Radial artery. 12:07:32 Procedure ended.(Physican Out) 12:07:40 TR BAND Standard ([id number]) opened to sterile field. 12:09:33 Fluoroscopy time 02.20 minutes. 12::39 Fluoroscopy dose: 332 mGy 12:09:39 Flurop Dose total: 332 12:09:43 Contrast amount:Isovue 300 47ml. 12:09:44 Sharps counted by scrub and verified by R.N. 12:09:46 TR band inflated with 12cc of air. 12:09:47 Insertion/operative site no bleeding no hematoma. 12:09:53 Post right radial artery:stable, clean and dry 12:09:54 Post Procedure Pulses reassessed and unchanged 12:09:56 Post-procedure physical assessment completed. ASA score P 2 - A patient with mild systemic disease as per Damian Lorenzo MD. 12:09:58 Post procedure rhythm: unchanged. 12:10:01 Estimated blood loss: 10 ml 12:10:02 Post procedure instruction explained to patient.Patient verbalizes understanding. 12:10:03 Patient needs reinforcement of post procedure teaching. 12:10:08 Procedure type changed to Cath procedure, Diagnostic procedure, LHC, LHC w/Coronaries, PCI procedure, Coronary Stent, Coronary Stent Initial 12:10:13 Procedure Complication : No complications 12:10:18 See physician's report for complete and final results. 12:10:37 Procedure and supply charges have been captured, reviewed, submitted and are correct. 12:10:39 Report given to Pre/Post Procedure Room. 12:10:48 Patient transfered to Pre/Post Procedure Room with Stretcher. 12:10:49 Full Disclosure recording stopped 12:10:49 Procedure ended. 12:10:56 End room use (Document Last) 12:12:16 Vital chart was stopped 12:15:03 Plavix 600 mg P.O. was administered by Bernadine Cerna RN; for anticoagulation; Intervention Summary Intervention Notes Time ActionType Lesion and Equipment Used Action# Pressure Duration Attributes 12:06:58 Place stent Prox LAD NAOMI RX 3.0 x 1 17 00:08 18 stent ([id number]) Device Usage Item Name Manufacture Quantity Catalog Number Hospital Part Current Minimal Lot# / Charge Number Stock Stock Serial# Code ACIST Syringe Acist 1 68123 478999 975293 [id number] 20 (73771) Medical Systems Inc Medline Cath Cardinal 1 [id number] 163540 81735 212542 5 [facility] ([id number]) Bag Decanter Microtek 1 777324 41232 188604 5 () Medical Inc. DIAGNOSTIC WIRE St Kareem 1 149394 264891 090215 767097 30 .035 260cm J wire (550005) ACIST Hand Acist 1 18676 901223 642811 047412 5 Control (50325) Medical Systems Inc ACIST Manifold Acist 1 65554 743148 623162 261424 5 (65504) Medical Systems Inc Tegaderm 4 x 4 3M 1 1626W 787782 097395 046726 5 (1626W) MBrace Wrist Advanced 1 140-0250-00 061021 56723 471919 5 Support Vascular ([id number]) Dynamics SHEATH 6Fr Merit 1 [id number] 769187 150195 658936 5 Prelude Radial Medical ([id number]) DIAGNOSTIC Terumo 1 40-7253 817075 785460 798507 5 [facility] 110cm 5 Fr catheter (706947) INFLATOR Merit Merit 1 [id number] 077737 790481 498369 15 InfoBasis Medical ([id number]) CHOICE PT Extra [place] 1 [id number] 274639 482361 027784 5 Support 182cm Scientific wire ([id number]) GUIDE 6FR XBLAD Cardinal 1 [id number] 183422 042598 837236 10 3.5 catheter Health ([id number]) NAOMI RX 3.0 x Medtronic 1 [id number] 931900 9052393 442616 5 [id number] 18 stent ([id number]) TR BAND Terumo 1 [id number] 284176 034886 487616 40 Standard ([id number]) Signature Audit [place] Stage Time Signature Unsigned Intra-Procedure 11/07/2017 Leeanne Fallon Counts 12:12:14 PM Counts RT(R) RT(R) 11/07/2017 12:12:52 PM Intra-Procedure 11/07/2017 Leeanne 12:15:23 PM Counts RT(R) Signatures Monitor : Leeanne Signature : Counts RT Date : Time : [facility] [address] [place] [address]
--- NOTE | ~2017-11-07 | OP ---
PATIENT NAME: KATERIN BAKER MEDICAL RECORD: [id number] :56 LOCATION:D.CAT ADMISSION DATE: SURGEON: CALLIE GOMEZ MD DATE OF OPERATION: 11/07/2017 PROCEDURES: 1. PTCA stent LAD. 2. Left heart catheterization. 3. Selective coronary angiography. 4. Left ventriculogram. INDICATION: Angina and coronary artery disease. PROCEDURE PERFORMED: After informed consent was obtained and after a detailed description of risks, benefits as well as alternative therapies, the patient elected to proceed with angiogram and angioplasty. The right femoral area was prepped and draped in normal sterile fashion. The right femoral artery was cannulated via modified Seldinger technique with placement of 6-Portuguese sheath. All catheters exchanged through this sheath. FINDINGS: The left ventriculogram was performed in standard 30-degree FLOWERS view, reveals good cardiac wall motion throughout all segments. Overall ejection fraction estimated 60%. SELECTIVE CORONARY ANGIOGRAPHY: 1. Left main has no significant angiographic disease. 2. Left anterior descending has a previously placed bare metal stent proximally that has 90% in-stent restenosis. 3. Left circumflex has moderate irregularities, but no flow-limiting stenosis. 4. Right coronary artery has moderate irregularities, but no flow-limiting stenosis. PTCA STENT OF THE LAD: The stent used is a 3.0 x 18 mm Omar. Result was 0% residual stenosis. OVERALL IMPRESSION: Successful percutaneous transluminal coronary angioplasty stent of the left anterior descending going from 90% initial stenosis that was in-stent restenosis to 0% residual stenosis. TRANSINT:[id number] Voice Confirmation ID: [id number] DOCUMENT ID: [id number] CALLIE GOMEZ MD at 1859 CC: [id number] DICTATION DATE: 11/07/17 1211 CONTAINER CRANE OPERATOR: 11/07/17 1217 DEP CLI 11/07/17 [place] [address]
[~2017-11-07 09:21] MED LIST: ASPIRIN81 MG PO; NICODERM C1 PATCH .1 TRANSDERM; OXYBUTYNIN CHLOR5 MG PO; PLAVIX75 MG PO; PROTONIX20 MG PO; ZOCOR20 MG PO
[2017-11-07] MEDS ORDERED: DETROL LA4 MG PO (09:31)
[2017-11-07] MEDS ORDERED: SINGULAIR10 MG PO (09:31)
[2017-11-07] MEDS ORDERED: TRAZODONE HCL100 MG PO (09:32)
[2017-11-07] MEDS ORDERED: DICLOFENAC SODI50 MG PO (09:35)
[2017-11-07 09:56] VITALS: BP 133/74; Ht 154.9 cm; Wt 84.5 kg
[2017-11-07 10:14] LABS: BASOPHILS 0.5 % (0-2); EOSINOPHILS 3.4 % (0-7); HEMATOCRIT 35.8 % (36.0-48.0); IMMATURE GRANULOCYTES 0.2 % (0-5); LYMPHOCYTES 27.5 % (15-50); MCH 28.9 pg (26.0-34.0); MCHC 33.5 g/dL (31.0-37.0); MCV 86.3 fL (80.0-100.0); MEAN PLATELET VOLUME 10.5 fL (7.4-10.4); MONOCYTES 7.9 % (2-11); NEUTROPHILS 60.5 % (40-80); PLATELET COUNT 249 10x3/uL (130-400); RBC 4.15 10x6/uL (4.00-5.40); RDW 14.6 % (11.5-14.5); WBC 5.9 10x3/uL (4.8-10.8)
[2017-11-07 10:18] LABS: CALCIUM 8.5 mg/dL (8.5-10.1); CARBON DIOXIDE 27.8 mmol/L (21.0-32.0); POTASSIUM - SERUM 3.8 mmol/L (3.5-5.1)
[2017-11-07] MEDS ORDERED: PLAVIX75 MG PO (12:30)
== END 2017-11-07 15:43 ==
LOC: D.CATH 09:21
PROVIDERS: Internal Medicine Interventional Cardiology
DX: I25.110 Atherosclerotic heart disease of native coronary artery with unstable angina pectoris (principal)

== ENCOUNTER → 2018-07-02 17:05 | Outpatient (CLI) | payer MEDICAID ==
[2017-11-07 09:56] VITALS: BMI 35.2
[~2018-07-02 17:05] MED LIST changes: +DETROL LA4 MG PO; +DICLOFENAC SODI50 MG PO; +SINGULAIR10 MG PO; +TRAZODONE HCL100 MG PO
== END | disposition home or self-care (01) ==
LOC: D.MAMMO 13:00
PROVIDERS: ATTEND Nurse Practitioner
DX: Z12.31 Encounter for screening mammogram for malignant neoplasm of breast (principal)

== ENCOUNTER 2020-07-06 06:05 | Day surgery (SDC) | payer OTHER ==
[2020-07-03 15:45] LABS: BASOPHILS 2.1 % (0-2); EOSINOPHILS 1.7 % (0-7); HEMATOCRIT 37.5 % (36.0-48.0); HEMOGLOBIN 12.4 g/dL (12-16); LYMPHOCYTES 20.3 % (15-50); MCH 27.6 pg (26.0-34.0); MCHC 33.1 g/dL (31.0-37.0); MCV 83.4 fL (80.0-100.0); MEAN PLATELET VOLUME 8.2 fL (7.4-10.4); MONOCYTES 6.2 % (2-11); NEUTROPHILS 69.7 % (40-80); RDW 15.8 % (11.5-14.5)
[2020-07-03 15:56] LABS: ANION GAP 10.1 mmol/L (8-16); CALCIUM 8.9 mg/dL (8.5-10.1); CARBON DIOXIDE 26.9 mmol/L (21.0-32.0); CREATININE - SERUM 1.2 mg/dL (0.6-1.3)
[2020-07-03 16:19] LABS: PLATELET COUNT 343 10x3/uL (130-400)
[~2020-07-06] VITALS: Ht 154.9 cm; Wt 80.3 kg
[~2020-07-06 06:05] MED LIST changes: +AMBIEN10 MG PO; +BAYER CHEWABLE81 MG PO; +BREO ELLIPTA 11 EACH INH; +NITROSTAT0.4 MG SL; -PROTONIX20 MG PO; +PROTONIX40 MG PO; +TOPROL XL25 MG PO; +VESICARE10 MG PO
[2020-07-06 06:43] VITALS: BP 131/58; Ht 154.9 cm; Wt 80.3 kg
--- NOTE | 2020-07-06 14:47 | NUR ---
1305 IV REMOVED AND PRESSURE HELD. INSTRUCTIONS GIVEN
--- NOTE | 2020-07-16 13:56 | OP ---
PATIENT NAME: KATERIN BAKER MEDICAL RECORD: [id number] :56 LOCATION:D.OPS ADMISSION DATE: SURGEON: BAYLEE OCHOA DO DATE OF OPERATION: 07/06/2020 PREOPERATIVE DIAGNOSES: Postmenopausal bleeding and polyps. POSTOPERATIVE DIAGNOSES: Postmenopausal bleeding and polyps. PRIMARY SURGEON: Baylee Ochoa DO ANESTHESIA: LMA. PROCEDURE: Operative hysteroscopy, D&C, polypectomy. FINDINGS: A 7 cm uterus, bilateral ostia within normal limits, large endometrial polyps and endocervical polyps. Fluid deficit per Aveta 570 mL, but system not hooked up appropriately. SPECIMENS: Endometrial curetting and polyps. ESTIMATED BLOOD LOSS: 10 cc. FLUIDS: 1 liter. COMPLICATIONS: None. Prior to procedure, risks of surgery including bleeding, pain, infection, damage to surrounding structures such as bowel, bladder, uterine perforation discussed, risk of VTE and reoperation as well. The patient expressed understanding and signed consents in the office. Preoperatively, all questions answered. DESCRIPTION OF PROCEDURE: The patient was taken to the operating room where general anesthesia was administered via LMA. The patient was then prepped and draped in normal sterile fashion in dorsal lithotomy position. Speculum placed inside of vagina. Anterior lip of the cervix was grasped with tenaculum. Uterus sounded to 7cm. Cervix dilated to accommodate Aveta hysteroscope. Polyp noted and multiple polyps within the cavity and endocervical canal. Bilateral ostia grossly normal. Resection tool placed within the scope and utilized to resect polyps. Then, hysteroscope removed a small sharp curette utilized to curettage the uterus in a clockwise fashion until gritty feeling was noted. Hemostasis was adequate. Specimens sent to pathology. Tenaculum removed. Silver nitrate placed. Speculum was then removed from the vagina. All lap, needle, sponge counts correct times 2. The patient was awakened and taken to recovery room in stable condition. TRANSINT:[id number] Voice Confirmation ID: [id number] DOCUMENT ID: [id number] OPERATIVE REPORT [id number] KATERIN BAKER BAYLEE OCHOA DO at 1356 CC: [id number] DICTATION DATE: 07/16/20 1305 AVIATION MECHANIC: 07/16/20 1332 [facility] 07/06/20 [facility] [address] [place] [address]
== END 2020-07-06 13:30 | disposition home or self-care (01) ==
LOC: D.OPS 06:05
PROVIDERS: Anesthesiology; ATTEND Obstetrics & Gynecology
DX: N95.0 Postmenopausal bleeding (principal); N84.0 Polyp of corpus uteri; N89.8 Other specified noninflammatory disorders of vagina